=== PATIENT | male | born 1970 | race Caucasian/White ===

== ENCOUNTER → 2016-09-15 | Outpatient (CLI) | payer OTHER ==
[2015-08-09 07:44] VITALS: BP 101/59
[~2016-09-15] MED LIST: INSU100I13 SQ; IOHEXOL 240 MG/ML 50ML VIAL. PO ONE; IOHEXOL 300 MG/ML 100ML VIAL. IV ONE; LORA2TAB PO; LOSA25TA4 PO
--- NOTE | 2016-09-15 16:04 | KCIC ---
Indication: Malignant neoplasm of the colon. Axial imaging through the chest, abdomen and pelvis was performed after the administration of intravenous contrast. One or more of the following individualized dose reduction techniques were utilized for this examination: 1. Automated exposure control 2. Adjustment of the mA and/or kV according to patient size 3. Use of iterative reconstruction technique Comparison is made with prior CT from 03/23/2016. CT CHEST: No right axillary lymphadenopathy is detected. There is a prominent lymph node in the left axilla measuring 1.2 cm in diameter. There has been development of some mild soft tissue prominence in the superior mediastinum at the level of the great vessels arising from aortic arch. Soft tissue measures approximately 2.9 x 1.7 cm. There may be a small calcification along the posterior aspect of the density. There also appears to be some soft tissue prominence in the middle mediastinum. Conglomerate of nodes in the precarinal region are present measuring approximately 2.1 x 1.6 cm. There also appears to be some fullness in the jose l bilaterally consistent with developing bilateral hilar lymphadenopathy. There is developing soft tissue fullness in the subcarinal region suggestive of lymphadenopathy. No pericardial or pleural fluid is identified. There is a 6 mm nodule in the medial aspect of the right upper lobe, image 15 which appear stable to prior study. Nodular density anterior aspect left upper lobe is stable. There appears to be a new subpleural nodule in the superior segment of the left lower lobe, image 35 measuring 4 mm. An additional nodule in the posterior lateral left lower lobe image 40 is noted measuring 7 mm. There appears to be some atelectasis in the left lower lobe. Tiny nodular density superior segment right lower lobe is seen. IMPRESSION: 1. Development of left axillary, mediastinal, and hilar lymphadenopathy as well as several pulmonary nodules. Findings are concerning for metastatic disease. Further evaluation with PET scan would be useful. CT abdomen and pelvis: No discrete liver mass is detected. The gallbladder appears contracted. The pancreas and spleen are unremarkable. There has been development of a low-density mass involving the right adrenal gland measuring approximate 3.2 x 1.7 cm. This is suspicious for a metastatic lesion. The left adrenal gland is unremarkable. The kidneys do show some prominent extrarenal pelves bilaterally. There is some hydronephrosis on the right. Aorta is nonaneurysmal. No central retroperitoneal or mesenteric lymphadenopathy is seen. The small and large bowel loops are normal caliber. There is an ostomy in the left lower quadrant. The previously noted thickening of the urinary bladder yates is again noted and appears to be increased. This is particularly noted along the right lateral wall measuring a thickness of 1.8 cm. There is also increasing thickening and soft tissue noted at the bladder base. There continues to be significant abnormal soft tissue noted in the presacral location, similar to prior exam. No pelvic lymphadenopathy is identified. The bony structures are intact. IMPRESSION: 1. Development of low density mass right adrenal gland, suspicious for a metastatic lesion. 2. Worsening bladder wall thickening. Bladder neoplasm or direct invasion of the bladder cannot be entirely excluded. There continues to be abnormal soft tissue in the presacral region and the possibility of local recurrence or residual neoplasm cannot be excluded. PET scan may be useful for further evaluation. Electronically signed by: Mike Sánchez MD (09/15/2016 4:01 PM)
== END | disposition home or self-care (01) ==
LOC: KCIC CT 14:28
PROVIDERS: ATTEND Internal Medicine Hematology & Oncology
DX: C18.9 Malignant neoplasm of colon, unspecified (principal); R91.8 Other nonspecific abnormal finding of lung field; R91.1 Solitary pulmonary nodule; E11.9 Type 2 diabetes mellitus without complications; F17.200 Nicotine dependence, unspecified, uncomplicated
CPT/HCPCS: 71260; 74177; 82565; Q9966; Q9967

== ENCOUNTER → 2016-12-24 | Outpatient (CLI) | payer OTHER ==
[2015-08-09 07:44] VITALS: BP 101/59
[~2016-12-24] MED LIST changes: -IOHEXOL 300 MG/ML 100ML VIAL. IV ONE; +IOHEXOL 300 MG/ML 75 ML VIAL IV ONE
--- NOTE | 2016-12-24 15:49 | RAD ---
Indication bladder malignancy. Staging. Contrast imaging through the chest abdomen and pelvis was performed. Both oral and IV contrast were administered. Approximately 75 cc of Omnipaque 300 was administered intravenously. Comparison is made to a similar series of examinations 09/15/2016. CT chest: Findings. Mild left axillary adenopathy persists similar to the previous exam. Mediastinal and hilar adenopathy persists but appears improved which would be compatible with a favorable therapeutic response. A nodule is seen in the left lower lobe, image 33 series 2, but it too is smaller than on the previous exam again compatible with a favorable therapeutic response. There are areas of volume loss in the left lower lobe likely reflecting atelectasis or scar. A new finding in the chest is not seen. A pleural parenchymal nodule in the right upper lobe, perhaps representing a focus of scarring appears unchanged CT abdomen and pelvis: Findings. The liver and spleen appear unremarkable. No pancreatic abnormality is seen. The left adrenal gland appears unremarkable. There is some enlargement of the right adrenal gland similar to slightly improved compared to the previous exam. There is a right ureteral stent extending from the renal pelvis to the urinary bladder. There is no hydronephrosis on today's study. The left kidney and ureter appear normal. A new finding in the abdomen is not seen. Ostomy is noted in the left abdomen. Previously seen asymmetric thickening particularly involving the right posterior and lateral wall of the urinary bladder appears improved compatible with a favorable therapeutic response. A new finding in the abdomen or pelvis is not seen. IMPRESSION: Interval improvement. Some hilar and mediastinal as well as left axillary adenopathy persists but this is improved. Pulmonary nodule, compatible with metastatic disease, in the left lung is smaller. In the abdomen and pelvis previously identified soft tissue mass involving the urinary bladder appears smaller. The findings are compatible with a favorable therapeutic response PQRS Compliance Statement: One or more of the following individualized dose reduction techniques were utilized for this examination: 1. Automated exposure control 2. Adjustment of the mA and/or kV according to patient size 3. Use of iterative reconstruction technique
== END | disposition home or self-care (01) ==
LOC: CT 12:42
PROVIDERS: ATTEND Internal Medicine Hematology & Oncology
DX: C67.9 Malignant neoplasm of bladder, unspecified (principal); R91.1 Solitary pulmonary nodule; E11.9 Type 2 diabetes mellitus without complications; Z87.891 Personal history of nicotine dependence
CPT/HCPCS: 71260; 74177

== ENCOUNTER → 2017-04-22 | Outpatient (CLI) | payer OTHER ==
[~2017-04-22] MED LIST changes: -INSU100I13 SQ; +IOHEXOL 240 MG/ML 50ML VIAL.; -IOHEXOL 240 MG/ML 50ML VIAL. PO ONE; +IOHEXOL 300 MG/ML 50 ML VIAL. PO; -IOHEXOL 300 MG/ML 75 ML VIAL IV ONE; -LORA2TAB PO; -LOSA25TA4 PO
== END | disposition home or self-care (01) ==
LOC: CT 12:06
DX: C67.1 Malignant neoplasm of dome of bladder (principal); I25.10 Atherosclerotic heart disease of native coronary artery without angina pectoris; N62 Hypertrophy of breast; R91.1 Solitary pulmonary nodule; J92.9 Pleural plaque without asbestos; Z85.038 Personal history of other malignant neoplasm of large intestine
CPT/HCPCS: 71250; 74176; Q9966

== ENCOUNTER 2017-09-03 13:57 | Observation (INO) | payer OTHER ==
[2017-09-03 14:34] LABS: ADD MAN DIFF? NO
[2017-09-03 14:37] LABS: BASO % 0 % (0-3); EOS # 0.2 x10^3/uL (0.0-0.7); EOS % 4 % (0-3); HEMATOCRIT 30.2 % (39.0-53.0); HEMOGLOBIN 10.5 g/dL (13.0-17.5); LYMPH # 1.2 x10^3/uL (1.0-4.8); LYMPH % 23 % (24-48); MEAN CORPUSCULAR HEMOGLOBIN 29 pg (25-35); MEAN CORPUSCULAR HGB CONC 35 g/dL (31-37); MEAN CORPUSCULAR VOLUME 84 fL (79-100); MONO # 0.6 x10^3/uL (0.0-1.1); MONO % 11 % (0-9); NEUT # 3.4 x10^3uL (1.8-7.7); NEUT % 62 % (31-73); PLATELET COUNT 275 x10^3/uL (140-400); RED BLOOD COUNT 3.58 x10^6/uL (4.30-5.70); RED CELL DISTRIBUTION WIDTH 14.6 % (11.5-14.5); WHITE BLOOD COUNT 5.4 x10^3/uL (4.0-11.0)
[2017-09-03] MEDS: IV NORMAL SALINE 1000ML BAG 1,000 ML IV ×2 (14:40→16:44)
[2017-09-03 14:48] LABS: ANION GAP 10 (6-14); BLOOD UREA NITROGEN 19 mg/dL (8-26); BUN/CREATININE RATIO 14 (6-20); CALCIUM 8.6 mg/dL (8.5-10.1); CARBON DIOXIDE 25 mmol/L (21-32); CHLORIDE 95 mmol/L (98-107); CREATININE 1.4 mg/dL (0.7-1.3); GFR 53.9; GLUCOSE 156 mg/dL (70-99); POTASSIUM 4.2 mmol/L (3.5-5.1); SODIUM 130 mmol/L (136-145)
[2017-09-03 14:53] LABS: BILIRUBIN,URINE NEGATIVE (NEG); CLARITY,URINE TURBID; GLUCOSE,URINE 100 mg/dL (NEG); NITRITE,URINE POSITIVE (NEG); PROTEIN,URINE >=300 mg/dL (NEG-TRACE); UROBILINOGEN,URINE 0.2 mg/dL (0.2 mg/dL)
[2017-09-03 14:54] LABS: ALBUMIN 3.3 g/dL (3.4-5.0); ALBUMIN/GLOBULIN RATIO 0.9 (1.0-1.7); ALK PHOS 154 U/L (46-116); ALT (SGPT) 17 U/L (16-63); AST (SGOT) 17 U/L (15-37); TOTAL BILIRUBIN 0.3 mg/dL (0.2-1.0); TOTAL PROTEIN 7.1 g/dL (6.4-8.2)
[2017-09-03 14:57] LABS: TROPONINI < 0.017 ng/mL (0.000-0.055)
[2017-09-03 15:07] LABS: BACTERIA,URINE MODERATE /HPF (0-FEW); COLOR,URINE BROWN; RBC,URINE FOBS /HPF (0-2); WBC,URINE TNTC /HPF (0-4)
[2017-09-03] MEDS: INSULIN LISPRO 300 UNITS/3 ML INSULN.PEN. SQ ×2 (17:00→17:47)
[2017-09-03] MEDS ORDERED: DEXTROSE 50% 25 GM / 50ML DISP.SYRIN. IV (17:00)
[2017-09-03] MEDS ORDERED: INSULIN ASPART 100 UNIT/ML 10ML VIAL. SQ (17:00)
[2017-09-03 17:30] LABS: POC GLUCOSE 125 mg/dL (70-99)
[2017-09-03] MEDS ORDERED: MAGNESIUM HYDROXIDE 2,400 MG/30 ML ORAL.SUSP. PO (18:00)
[2017-09-03] MEDS: oxyCODONE IR 5 MG TABLET PO (18:28)
[2017-09-03] MEDS: SENNOSIDES/DOCUSATE 8.6/50MG TABLET. PO ×2 (18:28→21:23)
[2017-09-03] MEDS: LORazepam 1 MG TABLET PO (18:31)
[2017-09-03] MEDS: fentaNYL PF VIAL 100 MCG/2 ML VIAL IV (21:23)
[2017-09-03] MEDS: FAMOTIDINE 20 MG TABLET. PO (21:24)
[2017-09-03] MEDS: oxyCODONE ER 10 MG TAB.ER.12H PO (21:24)
[2017-09-03] MEDS: INSULIN GLARGINE 300 UNITS/3 ML INSULN.PEN. SQ (21:36)
[2017-09-04] MEDS: IV NORMAL SALINE 1000ML BAG 1,000 ML IV ×2 (02:21→12:19)
[2017-09-04] MEDS: oxyCODONE IR 5 MG TABLET PO ×3 (05:28→16:20)
[2017-09-04] MEDS: fentaNYL PF VIAL 100 MCG/2 ML VIAL IV ×5 (05:32→14:37)
[2017-09-04 06:16] LABS: POC GLUCOSE 92 mg/dL (70-99)
[2017-09-04] MEDS: INSULIN LISPRO 300 UNITS/3 ML INSULN.PEN. SQ ×3 (07:48→17:00)
[2017-09-04 07:51] LABS: POC GLUCOSE 76 mg/dL (70-99)
[2017-09-04] MEDS: oxyCODONE ER 10 MG TAB.ER.12H PO (08:54)
[2017-09-04] MEDS: FAMOTIDINE 20 MG TABLET. PO (08:54)
[2017-09-04] MEDS: SENNOSIDES/DOCUSATE 8.6/50MG TABLET. PO (08:55)
[2017-09-04] MEDS: LORazepam 1 MG TABLET PO ×3 (09:29→14:41)
[2017-09-04 11:30] LABS: POC GLUCOSE 98 mg/dL (70-99)
[2017-09-04] MEDS: ALTEPLASE 2 MG VIAL INT CAT (17:28)
[2017-09-04] MEDS: HEPARIN PF 500 UNIT/5 ML DISP.SYRIN. IV (18:51)
[2017-09-04] MEDS ORDERED: INSULIN GLARGINE 300 UNITS/3 ML INSULN.PEN. SQ (21:00)
[2017-09-04] MEDS ORDERED: oxyCODONE ER 15 MG TAB.ER.12H PO (21:00)
== END 2017-09-04 18:55 | disposition home or self-care (01) ==
LOC: ER 13:57 → 4 NORTH 16:05
DX: I95.9 Hypotension, unspecified (principal); E11.9 Type 2 diabetes mellitus without complications; N39.0 Urinary tract infection, site not specified; G89.3 Neoplasm related pain (acute) (chronic); Z82.49 Family history of ischemic heart disease and other diseases of the circulatory system; Z85.038 Personal history of other malignant neoplasm of large intestine; Z85.51 Personal history of malignant neoplasm of bladder; Z93.3 Colostomy status
CPT/HCPCS: 36415; 71045; 80053; 81001; 82962; 83605; 84484; 85025; 87040; 87086; 87186; 96361; 96365; 96372; 96375; 96376; 99285-25; G0378; G0379; J1815; J1956; J2997; J3010; J7030

== ENCOUNTER 2017-09-16 11:26 | Emergency (ER) | payer OTHER ==
[2017-09-16 12:09] LABS: ADD MAN DIFF? NO
[2017-09-16 12:17] LABS: BASO % 0 % (0-3); EOS # 0.2 x10^3/uL (0.0-0.7); EOS % 4 % (0-3); HEMATOCRIT 27.5 % (39.0-53.0); HEMOGLOBIN 9.7 g/dL (13.0-17.5); LYMPH % 16 % (24-48); MEAN CORPUSCULAR HEMOGLOBIN 30 pg (25-35); MEAN CORPUSCULAR HGB CONC 35 g/dL (31-37); MEAN CORPUSCULAR VOLUME 84 fL (79-100); MONO # 0.6 x10^3/uL (0.0-1.1); MONO % 11 % (0-9); NEUT # 4.2 x10^3uL (1.8-7.7); NEUT % 69 % (31-73); PLATELET COUNT 256 x10^3/uL (140-400); RED BLOOD COUNT 3.27 x10^6/uL (4.30-5.70); RED CELL DISTRIBUTION WIDTH 14.4 % (11.5-14.5); WHITE BLOOD COUNT 6.1 x10^3/uL (4.0-11.0)
[2017-09-16 12:21] LABS: ANION GAP 8 (6-14); BLOOD UREA NITROGEN 17 mg/dL (8-26); BUN/CREATININE RATIO 11 (6-20); CALCIUM 8.4 mg/dL (8.5-10.1); CARBON DIOXIDE 28 mmol/L (21-32); CHLORIDE 90 mmol/L (98-107); COLOR,URINE RED; CREATININE 1.5 mg/dL (0.7-1.3); GFR 49.7; GLUCOSE 224 mg/dL (70-99); SODIUM 126 mmol/L (136-145)
[2017-09-16] MEDS: IV NORMAL SALINE 1000ML BAG 1,000 ML IV (12:25)
[2017-09-16 12:27] LABS: ALBUMIN 3.1 g/dL (3.4-5.0); ALBUMIN/GLOBULIN RATIO 0.7 (1.0-1.7); ALK PHOS 216 U/L (46-116); ALT (SGPT) 20 U/L (16-63); AST (SGOT) 18 U/L (15-37); BACTERIA,URINE MODERATE /HPF (0-FEW); CLARITY,URINE BLOODY; LIPASE 646 U/L (73-393); RBC,URINE TNTC /HPF (0-2); TOTAL BILIRUBIN 0.5 mg/dL (0.2-1.0); TOTAL PROTEIN 7.6 g/dL (6.4-8.2); WBC,URINE TNTC /HPF (0-4)
[2017-09-16 12:30] LABS: LACTIC ACID 1.4 mmol/L (0.4-2.0)
== END 2017-09-16 13:29 | disposition home or self-care (01) ==
LOC: ER 11:26
DX: T83.84XA Pain due to genitourinary prosthetic devices, implants and grafts, initial encounter (principal); R31.9 Hematuria, unspecified; K21.9 Gastro-esophageal reflux disease without esophagitis; E87.1 Hypo-osmolality and hyponatremia; E11.9 Type 2 diabetes mellitus without complications; Z93.3 Colostomy status; Z93.2 Ileostomy status; Z85.038 Personal history of other malignant neoplasm of large intestine; Z86.74 Personal history of sudden cardiac arrest; Y82.8 Other medical devices associated with adverse incidents; Y92.89 Other specified places as the place of occurrence of the external cause
CPT/HCPCS: 36415; 80053; 81001; 83605; 83690; 85025; 87086; 93005; 99285-25; J7030